=== PATIENT | male | born 1985 ===

== ENCOUNTER 2021-09-15 14:44 | Emergency (ER) | payer SELFPAY ==
[~2021-09-15] VITALS: Ht 170.2 cm; Wt 80.0 kg
[2021-09-15 15:05] VITALS: BP 131/85
== END 2021-09-15 15:12 ==
LOC: ER 14:45
DX: S39.012A Strain of muscle, fascia and tendon of lower back, initial encounter (principal); X58.XXXA Exposure to other specified factors, initial encounter; Y93.89 Activity, other specified; Y92.89 Other specified places as the place of occurrence of the external cause; Y99.8 Other external cause status
CPT/HCPCS: 99283